=== PATIENT | female | born 1955 | race Caucasian/White ===

== ENCOUNTER → 2017-09-04 | Outpatient (CLI) | payer OTHER ==
[~2017-09-04] MED LIST: ACE3 PO; AMOX-559 PO; ASCO100T PO; AZIT-1 PO; CALC-852 PO; CEPH-13 PO; CHOL200074 PO; CHOL500050 PO; CIPR-326 PO; CYAN1000 IM; CYAN1TAB4 SL; DON PO; ENTLA PO; EST42T PV; ESTR10TA4 VG; ESTR1POW41 MC; ESTROVEN ENER PO; FEXO1TAB39 PO; FLUC150T40 PO; GUAI400T18 PO; HYDR-3166 PO; HYDR-3503 PO; HYDR2TAB74 PO; IBU800 PO; IBUP-2704 PO; LEV500 PO; LEVO-85 PO; LEVO50TA80 PO; LEVO750T44 PO; LEVO75TA68 PO; MAGN250T34 PO; METR-1 PO; MOMR; MOMR NS; MON10 PO; MONT10TA PO; MULT-1319 PO; MULT1000 PO; NAPR-1043 PO; NIAC500T85 PO; OMEG1CAP85 PO; PAN40 PO; PER PO; PHENA200 PO; POLY17PO25 PO; PRE10 PO; PRED20TA6 PO; SODI1PAC NS; SUDAFED PO; SUM25 PO; SUMA20SP8 NS; SUMA25TA27 PO; TRA50 PO; TRAZ-133 PO; TRAZ50TA34 PO
[2017-09-04 09:45] LABS: PLATELET COUNT, AUTOMATED 235 K/uL (150-450)
[2017-09-04 10:20] LABS: LDL CHOLESTEROL 128 mg/dl
== END ==
LOC: LAB 09:27
PROVIDERS: ATTEND Nurse Practitioner Family
DX: Z00.00 Encounter for general adult medical examination without abnormal findings (principal); E53.8 Deficiency of other specified B group vitamins; E03.9 Hypothyroidism, unspecified
CPT/HCPCS: 36415; 82040; 82247; 82310; 82374; 82435; 82465; 82565; 82947; 83718; 84075; 84132; 84155; 84295; 84443; 84450; 84460; 84478; 84520; 85025

== ENCOUNTER → 2017-11-14 | Outpatient (CLI) | payer OTHER ==
[~2017-11-14] MED LIST changes: +CHOL10005 PO; +DIPH-464 PO; +DOXY-179 PO; +FISH1CAP17 PO; +FLU150 PO; +SUMA50TA35 PO
--- NOTE | 2017-11-14 16:57 | RADIOLOGY IMAGING REPORT ---
FACILITY: [facility] PATIENT NAME: Rebecca Don : 1955 MR: [id number] V: [id number] EXAM DATE: ORDERING PHYSICIAN: VIDHYA KOCH TECHNOLOGIST: Location: [facility] Patient: Rebecca Don : 1955 Visit/Account:[id number] Date of Sevice: 11/14/2017 HIP RIGHT Indication: Hip pain. Comparison: None available Findings: There is no acute fracture or dislocation of the right hip. The pelvis is intact. Mild degenerative changes right hip joint noted characterized by slight remodeling of the femoral hea d IMPRESSION: 1. Mild degenerative changes, no acute abnormalities noted Report Dictated By: Roger Martinez at 11/14/2017 4:53 PM Report E-Signed By: Roger Martinez at 11/14/2017 4:54 PM WSN:[id number]
== END ==
LOC: RAD 15:43
PROVIDERS: ATTEND Nurse Practitioner Primary Care
DX: M16.11 Unilateral primary osteoarthritis, right hip (principal)

== ENCOUNTER 2017-12-06 11:56 | Emergency (ER) | payer OTHER ==
[~2017-12-06 11:56] MED LIST changes: +HYDR-4228 PO
--- NOTE | 2017-12-06 12:07 | ER Report ---
History and Physical Time Seen By MD: 12:07 Hx. of Stated Complaint: PT STATES HAS BEEN TX FOR A SINUS INFECTION FOR A FEW WEEKS. STILL DOESN'T FEEL GOOD, NOW HAVING EAR PAIN AND PRESSURE, WITH RINGING HPI/ROS CHIEF COMPLAINT: Sinus congestion, dizziness, headache HISTORY OF PRESENT ILLNESS: 62-year-old patient presents to emergency room with complaint of sinus congestion, dizziness, headache. Patient states that she has been feeling well for approximately one month. She states that she has seen her primary care provider, Demarco Min, who put her on antibiotics. She states that she did not improve and was seen again by Valarie Sharma. She states that she was prescribed antibiotics and steroids. She states that seemed to help with her hip pain but she has had persistent sinus congestion. She states that her was told her that she has also become forgetful. But he believed that she was just not listening to him because she didn't feel well. She states that she did go to [place] to visit her sister, she says she felt so bad out there that she just in the back home. She denies any confusion or getting lost in route. She states her sister also knows that she was more forgetful. She states that s he did return and spoke with Demarco Min who said that she felt like she was having some anxiety Prescribe some hydroxyzine. She states that did not seem to help. REVIEW OF SYSTEMS: Respiratory: No cough, no dyspnea. Cardiovascular: No chest pain, no palpitations. Gastrointestinal: No vomiting, no abdominal pain. Musculoskeletal: No back pain. Allergies: Coded Allergies: doxycycline (Verified Allergy, Intermediate, Swelling in eyes, 12/06/17) pecan nut (Unverified Allergy, Unknown, 12/06/17) Uncoded Allergies: HAYFEVER (Allergy, Intermediate, NASAL CONGESTION, 09/20/11) Home Meds Active Scripts Sumatriptan Succinate (SUMATRIPTAN SUCCINATE) 50 Mg Tablet, 1 TAB PO ONCE PRN for MIGRAINE, #30 TAB 1 Refill take one tab at onset of migraine and if not improved after 2 hours take second tab Prov:DEMARCO MIN APRN-[place]ana 09/16/17 Levothyroxine Sodium (SYNTHROID) 75 Mcg Tablet, 1 TAB PO QDAY, #90 TAB 3 Refills Prov:DEMARCO MIN APRN-C 12/02/16 Estradiol (VAGIFEM) 10 Mcg Tablet, 1 TAB VG twice per week, #24 TAB 3 Refills Prov:DEMARCO MIN APRNP-C 11/12/16 Reported Medications Cholecalciferol (Vitamin D3) (VITAMIN D3) 1,000 Unit Tablet, 1000 UNIT PO, TAB 09/16/17 Fish Oil/Vit E/Fat No.5/Hc137 (FLAX, FISH & BORAGE OIL SOFGEL) 1 Each Capsule, 1 EACH PO, CAPSULE 09/16/17 Diphenhydramine Hcl (DIPHENHYDRAMINE HCL) 25 Mg Capsule, 25 MG PO Q6-8H, CAPSULE 09/16/17 Magnesium Oxide (MAGNESIUM) 250 Mg Tablet, 1 TAB PO DAILY, TAB 11/20/15 Niacin (NIACIN) 500 Mg Tablet, 1 TAB PO QDAY, TAB 11/20/15 [place]-3S/Dha/Epa/Fish Oil (Fish Oil 1,200 mg Softgel) 720-1,200MG Capsule, 2400 MG PO DAILY 11/20/15 Sodium Chloride/Sodium Bicarb (SINUS RINSE REFILL PACKETS) 1 Each Packet, 1 EACH NS DAILY, PACKET 11/20/15 Polyethylene Glycol 3350 (MIRALAX) 17 Gm Powd.pack, 17 GM PO, PKT 11/20/15 Discontinued Reported Medications Guaifenesin (GUAIFENESIN) 400 Mg Tablet, 2 TAB PO DAILY, TAB 11/20/15 Discontinued Scripts Hydroxyzine Hcl (HYDROXYZINE HCL) 50 Mg Tablet, 1-2 TAB PO Q6H PRN for ANXIETY, #40 TAB 0 Refills Prov:DEMARCO MIN APRN-C 12/04/17 Trazodone Hcl (TRAZODONE HCL) 50 Mg Tablet, 1 TAB PO QHS, #90 TAB 3 Refills Prov:DEMARCO MIN APRN-C 11/12/17 Past Medical/Surgical History Patient has a past medical history of sinusitis, migraine secondary to sinusitis, hayfever, pneumonia, kidney stone, 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 Patient has surgical history of abdominal surgery, appendectomy, colonoscopy, hysterectomy, breast augmentation, breast biopsy. Reviewed Nurses Notes: Yes Hx Smoking: No Smoking Status: Never Smoker Hx Substance Use Disorder: No Constitutional Vital Sign - Last 24 Hours 12/06/17 12/06/17 12/06/17 12/06/17 11:56 12:00 12:01 12:26 Temp 98.1 Pulse 55 80 58 Resp 20 B/P (MAP) 151/90 (110) 151/90 Pulse Ox 99 98 O2 Delivery Room Air 12/06/17 12/06/17 12/06/17 12/06/17 12:30 12:56 13:00 13:26 Pulse 51 51 B/P (MAP) 124/77 (93) 126/81 (96) Pulse Ox 100 95 Physical Exam General Appearance: The patient is alert, has no immediate need for airway protection and no current signs of toxicity. ENT: Bilateral tympanic membranes are pearly-josue, the right mid membranes bulging, the left tympanic membrane is retracted, mucus mucous membranes are moist. Respiratory: Chest is non tender, lungs are clear to auscultation. Cardiac: regular rate and rhythm Gastrointestinal: Abdomen is soft and non tender, no masses, bowel sounds normal. Musculoskeletal: Neck: Neck is supple and non tender. Extremities have full range of motion and are non tender. Skin: No rashes or lesions. DIFFERENTIAL DIAGNOSIS: After history and physical exam differential diagnosis was considered for sinusitis, migraine, dehydration. Medical Decision Making Data Points Result Diagram: 12/06/17 1249 12/06/171248 Laboratory Hematology Test 12/06/17 12:49 Red Blood Count 4.76 M/uL (4.17-5.56) Mean Corpuscular Volume 92.2 fL (80.0-96.0) Mean Corpuscular Hemoglobin 31.0 pg (26.0-33.0) Mean Corpuscular Hemoglobin Concent 33.6 g/dL (32.0-36.0) Red Cell Distribution Width 13.2 % (11.5-14.5) Mean Platelet Volume 8.9 fL (7.2-11.1) Neutrophils (%) (Auto) 53.7 % (39.4-72.5) Lymphocytes (%) (Auto) 37.7 % (17.6-49.6) Monocytes (%) (Auto) 5.0 % (4.1-12.4) Eosinophils (%) (Auto) 2.1 % (0.4-6.7) Basophils (%) (Auto) 1.5 % (0.3-1.4) Nucleated RBC Relative Count (auto) 0.0 /100WBC Neutrophils # (Auto) 3.1 K/uL (2.0-7.4) Lymphocytes # (Auto) 2.2 K/uL (1.3-3.6) Monocytes # (Auto) 0.3 K/uL (0.3-1.0) Eosinophils # (Auto) 0.1 K/uL (0.0-0.5) Basophils # (Auto) 0.1 K/uL (0.0-0.1) Nucleated RBC Absolute Count (auto) 0.00 K/uL Sodium Level 141 mmol/L (137-145) Potassium Level 3.8 mmol/L (3.5-5.0) Chloride Level 102 mmol/L (98-107) Carbon Dioxide Level 31 mmol/L (22-31) Blood Urea Nitrogen 13 mg/dl (7-18) Creatinine 0.90 mg/dl (0.52-1.04) Glomerular Filtration Rate Calc > 60.0 Random Glucose 97 mg/dl (75-110) Calcium Level 9.7 mg/dl (8.4-10.2) Total Bilirubin 0.3 mg/dl (0.2-1.3) Aspartate Amino Transf (AST/SGOT) 32 U/L (0-35) Alanine Aminotransferase (ALT/SGPT) 30 U/L (0-56) Alkaline Phosphatase 80 U/L (0-126) C-Reactive Protein < 0.5 mg/dl (<1.0) Total Protein 7.4 g/dl (6.3-8.2) Albumin 4.1 g/dl (3.5-5.0) Monoscreen Negative (NEGATIVE) Chemistry Test 12/06/17 12:49 White Blood Count 5.7 k/uL (4.5-11.0) Red Blood Count 4.76 M/uL (4.17-5.56) Hemoglobin 14.8 g/dL (12.0-16.0) Hematocrit 43.9 % (34.0-47.0) Mean Corpuscular Volume 92.2 fL (80.0-96.0) Mean Corpuscular Hemoglobin 31.0 pg (26.0-33.0) Mean Corpuscular Hemoglobin Concent 33.6 g/dL (32.0-36.0) Red Cell Distribution Width 13.2 % (11.5-14.5) Platelet Count 238 K/uL (150-450) Mean Platelet Volume 8.9 fL (7.2-11.1) Neutrophils (%) (Auto) 53.7 % (39.4-72.5) Lymphocytes (%) (Auto) 37.7 % (17.6-49.6) Monocytes (%) (Auto) 5.0 % (4.1-12.4) Eosinophils (%) (Auto) 2.1 % (0.4-6.7) Basophils (%) (Auto) 1.5 % (0.3-1.4) Nucleated RBC Relative Count (auto) 0.0 /100WBC Neutrophils # (Auto) 3.1 K/uL (2.0-7.4) Lymphocytes # (Auto) 2.2 K/uL (1.3-3.6) Monocytes # (Auto) 0.3 K/uL (0.3-1.0) Eosinophils # (Auto) 0.1 K/uL (0.0-0.5) Basophils # (Auto) 0.1 K/uL (0.0-0.1) Nucleated RBC Absolute Count (auto) 0.00 K/uL Glomerular Filtration Rate Calc > 60.0 Calcium Level 9.7 mg/dl (8.4-10.2) Total Bilirubin 0.3 mg/dl (0.2-1.3) Aspartate Amino Transf (AST/SGOT) 32 U/L (0-35) Alanine Aminotransferase (ALT/SGPT) 30 U/L (0-56) Alkaline Phosphatase 80 U/L (0-126) C-Reactive Protein < 0.5 mg/dl (<1.0) Total Protein 7.4 g/dl (6.3-8.2) Albumin 4.1 g/dl (3.5-5.0) Monoscreen Negative (NEGATIVE) EKG/Imaging Imaging Head CT scan without contrast COMPARISONS: None ADDITIONAL PERTINENT HISTORY: Headache with dizziness TECHNIQUE: Multiple axial images were obtained from the skull base to the vertex without IV contrast. One of the following dose optimization techniques was utilized in the performance of this exam: Automated exposure control; adjustment of the mA and/or kV according to the patient's size; or use of an iterative reconstruction technique. Specific details can be referenced in the facility's radiology CT exam operational policy. FINDINGS: Midline shift: Negative Ventricles: Negative Brain parenchyma: Negative Extra-axial spaces: Negative Intracranial vasculature: Negative Osseous structures: Negative Paranasal sinuses and mastoid air cells: Negative Surrounding soft tissues and orbits: Negative IMPRESSION: Normal head CT scan without contrast. Report Dictated By: Gerhard Perez MD at 12/06/2017 1:22 PM Report E-Signed By: Gerhard Perez MD at 12/06/2017 1:25 PM ED Course/Re-evaluation ED Course Patient was admitted to exam room, history and physical were obtained. Differential diagnoses were considered. On examination lungs are clear, heart is regular. Patient does have tenderness to the maxillary and frontal sinuses. An IV was started, CBC, CMP, CRP were done. Labs were unremarkable. CT scan of the head was done. That was negative. I discussed the findings with patient and her . I believe that we are likely dealing with a viral illness patient has normal lab work and normal imaging. I discussed with patient and her . As I was talking with them I did think that perhaps we should check a mono test to make sure that is not a viral illness that she is dealing with. Patient agreed. That was negative. I discussed findings with patient. We'll go ahead and discharge home. I would like her to follow-up with Dr. Glass, ENT as an believe this is likely more of a upper respiratory type of issue. Patient and her verbalized understanding and agreement with plan. Decision to Disposition Date: Dec 06, 2017 Decision to Disposition Time: 13:41 Depart Departure Latest Vital Signs Vital Signs Date Time Temp Pulse Resp B/P (MAP) Pulse Ox O2 Delivery O2 Flow Rate FiO2 12/06/17 13:26 51 95 12/06/17 13:00 126/81 (96) 12/06/17 12:01 98.1 20 Room Air Impression: Primary Impression: Upper respiratory infection Condition: Improved Disposition: HOME OR SELF-CARE Referrals: DEMARCO MIN APRN CANOE INSPECTOR-C (PCP) Patient Instructions: Upper Respiratory Infection (ED) Additional Instructions: Increase fluid intake. Take the Sudafed twice a day. Follow up with Demarco in the next 1-2 weeks. Follow up with Dr. Glass in the next week. Continue with regular diet and exercise. Problem Qualifiers Primary Impression: Upper respiratory infection URI type: unspecified viral URI Qualified Codes: J06.9 - Acute upper respiratory infection, unspecified JOEY JARQUIN Dec 06, 2017 12:07
[2017-12-06] MEDS ORDERED: NS(*) 0.9% 500 ML BAG 500 ML IV ONE (12:35)
[2017-12-06 13:00] VITALS: BP 126/81
[2017-12-06 13:03] LABS: PLATELET COUNT, AUTOMATED 238 K/uL (150-450)
--- NOTE | 2017-12-06 13:29 | RADIOLOGY IMAGING REPORT ---
FACILITY: [facility] PATIENT NAME: Rebecca Don : 1955 MR: [id number] V: [id number] EXAM DATE: ORDERING PHYSICIAN: JOEY JARQUIN TECHNOLOGIST: Location: [facility] Patient: Rebecca Don : 1955 Visit/Account:[id number] Date of Sevice: 12/06/[address] scan without contrast COMPARISONS: None ADDITIONAL PERTINENT HISTORY: Headache with dizziness TECHNIQUE: Multiple axial images were obtained from the skull base to the vertex without IV contrast . One of the following dose optimization techniques was utilized in the performance of this exam: Aut omated exposure control; adjustment of the mA and/or kV according to the patient's size; or use of an iterative reconstruction technique. Specific details can be referenced in the facility's radiology CT exam operational policy. FINDINGS: Midline shift: Negative Ventricles: Negative Brain parenchyma: Negative Extra-axial spaces: Negative Intracranial vasculature: Negative Osseous structures: Negative Paranasal sinuses and mastoid air cells: Negative Surrounding soft tissues and orbits: Negative IMPRESSION: Normal head CT scan without contrast. Report Dictated By: Gerhard Perez MD at 12/06/2017 1:22 PM Report E-Signed By: Gerhard Perez MD at 12/06/2017 1:25 PM [id number]
== END 2017-12-06 14:23 | disposition home or self-care (01) ==
LOC: ER 12:26
DX: J06.9 Acute upper respiratory infection, unspecified (principal)
CPT/HCPCS: 70450; 85025; 86140; 86308; 96360; 99284; J7040; 82040; 82247; 82310; 82374; 82435; 82565; 82947; 84075; 84132; 84155; 84295; 84450; 84460; 84520

== ENCOUNTER 2018-07-19 08:31 | Emergency (ER) | payer OTHER ==
[2018-07-19] MEDS ORDERED: TRAZ50TA34 PO (08:42)
--- NOTE | 2018-07-19 09:10 | ER Report ---
History and Physical Time Seen By MD: 08:50 Hx. of Stated Complaint: cough/cold for 1 week. low grade fevers. coughing up yellow mucus HPI/ROS CHIEF COMPLAINT: cough, low grade fever HISTORY OF PRESENT ILLNESS: 63 f presents after 3 wks of congestion, now with thick sputum past 1 d, yellowish x 3 days, 1 wk coughing. low grade fever and pain, sensation of fullness left side of face. Pt takes flonase daily, has tried mucinex. States trish has worked in past for similar symptoms. Cp only when coughing and right lower lateral. No pain or pressure in between coughing or with exertion. No recent travel, LE edema, hx of VTE REVIEW OF SYSTEMS: Constitutional: above Eyes: no blurred vision ENT: No sore throat. Cardiovascular: No chest pain, no palpitations. Respiratory: above Gastrointestinal: no abd pain; vomited 1 yest; after eating tuna Genitourinary: no dysuria Musculoskeletal: No back pain. Skin: No rashes. Neurological: left side headache Remainder of the 14 system rev: Yes Allergies: Coded Allergies: doxycycline (Verified Allergy, Intermediate, Swelling in eyes, 07/19/18) pecan nut (Unverified Allergy, Unknown, 07/19/18) Uncoded Allergies: HAYFEVER (Allergy, Intermediate, NASAL CONGESTION, 09/20/11) Home Meds Active Scripts Fluconazole (DIFLUCAN) 150 Mg Tablet, 150 MG PO ONCE, #1 TAB Prov:TUAN KOO MD 07/19/18 Oxymetazoline Hcl (AFRIN) 15 Ml Mist, 2 SPRAYS MELECIO BID for 3 Days, #1 BOTTLE Prov:TUAN KOO MD 07/19/18 Benzonatate 100 Mg Cap (TESSALON PERLE 100 MG CAP) 100 Mg Capsule, 100 MG PO TID for cough, #20 CAP Prov:TUAN KOO MD 07/19/18 Levofloxacin 500 Mg Tab (LEVAQUIN 500 MG TAB) 500 Mg Tablet, 500 MG PO DAILY for 10 Days, #10 TAB Prov:TUAN KOO MD 07/19/18 Levothyroxine Sodium (SYNTHROID) 75 Mcg Tablet, 1 TAB PO QDAY, #90 TAB 1 Refill Prov:DEMARCO MIN APRN MICROBIOLOGICAL ANALYST-C 05/25/18 Montelukast Sodium (SINGULAIR) 10 Mg Tablet, 1 TAB PO QDAY, #90 TAB 3 Refills Prov:DEMARCO MIN APRN-[place] 05/21/18 Sumatriptan Succinate (SUMATRIPTAN SUCCINATE) 50 Mg Tablet, 1 TAB PO ONCE PRN for MIGRAINE, #30 TAB 1 Refill take one tab at onset of migraine and if not improved after 2 hours take second tab Prov:DEMARCO MIN APRN-[place] 05/21/18 Reported Medications Trazodone Hcl (TRAZODONE HCL) 50 Mg Tablet, 25 MG PO QHS 07/19/18 Cholecalciferol (Vitamin D3) (VITAMIN D3) 1,000 Unit Tablet, 1000 UNIT PO, TAB 09/16/17 Fish Oil/Vit E/Fat No.5/Hc137 (FLAX, FISH & BORAGE OIL SOFGEL) 1 Each Capsule, 1 EACH PO, CAPSULE 09/16/17 Diphenhydramine Hcl (DIPHENHYDRAMINE HCL) 25 Mg Capsule, 25 MG PO Q6-8H, CAPSULE 09/16/17 Magnesium Oxide (MAGNESIUM) 250 Mg Tablet, 1 TAB PO DAILY, TAB 11/20/15 Niacin (NIACIN) 500 Mg Tablet, 1 TAB PO QDAY, TAB 11/20/15 [place]-3S/Dha/Epa/Fish Oil (Fish Oil 1,200 mg Softgel) 720-1,200MG Capsule, 2400 MG PO DAILY 11/20/15 Sodium Chloride/Sodium Bicarb (SINUS RINSE REFILL PACKETS) 1 Each Packet, 1 EACH NS DAILY, PACKET 11/20/15 Polyethylene Glycol 3350 (MIRALAX) 17 Gm Powd.pack, 17 GM PO, PKT 11/20/15 Discontinued Scripts Estradiol (VAGIFEM) 10 Mcg Tablet, 1 TAB VG DAILY, #14 TAB 0 Refills Prov:DEMARCO MIN APRN-Rossana 04/27/18 Reviewed Nurses Notes: Yes Hx Smoking: No Smoking Status: Never Smoker Hx Substance Use Disorder: No Hx Alcohol Use: No Constitutional Vital Sign - Last 24 Hours 07/19/18 07/19/18 07/19/18 07/19/18 08:35 09:00 09:30 09:56 Temp 98.1 Pulse 59 59 52 Resp 18 B/P (MAP) 108/71 100/67 (78) 97/59 (72) 105/62 (76) Pulse Ox 95 90 94 O2 Delivery Room Air 07/19/18 07/19/18 10:00 10:30 Pulse 50 54 B/P (MAP) 99/61 (74) 94/63 (73) Pulse Ox 100 Physical Exam General Appearance: The patient is alert, has no immediate need for airway protection and no signs of toxicity. Eyes: Pupils equal and round no pallor or injection. ENT, Mouth: Mucous membranes are moist. No tenderness to percussion of dentition. Tenderness to palpation of left maxillary sinus. No other sinus tenderness. TM clear Respiratory: There are no retractions, lungs are clear to auscultation. Cardiovascular: Regular rate and rhythm. no m/r/g Neurological: alert, oriented, nad Skin: Warm and dry, no rashes. Musculoskeletal: Neck is supple non tender. No cervical lymphadenopathy Extremities are nontender, nonswollen and have full range of motion. DIFFERENTIAL DIAGNOSIS: After history and physical exam differential diagnosis was considered for complications of sinusitis including septic thrombosis, dental infection, cellulitis, abscess, pneumonia, or other emergent etiology. Medical Decision Making EKG/Imaging Imaging X-ray: chest was obtained. I viewed the images myself on the PACS system. My interpretation of the images is: nacpd. The radiologist interpretation was pending at time of this evaluation. ED Course/Re-evaluation ED Course 63 f presents with sgs/symptoms of left max sinusitis without complications. Given duration and findings, will initaite abx. I discussed r/b of levaquin; pt understands these risks yet states this is all that has worked for her in the past, so we will rx levaquin. Chest findings c/w bronchitis without e/o pna. Pt comfortable and hd stable on d/c and understands SRP's. Decision to Disposition Date: July 19, 2018 Decision to Disposition Time: 10:32 Depart Departure Latest Vital Signs Vital Signs Date Time Temp Pulse Resp B/P (MAP) Pulse Ox O2 Delivery O2 Flow Rate FiO2 07/19/18 10:30 54 94/63 (73) 07/19/18 10:00 100 07/19/18 08:35 98.1 18 Room Air Impression: Primary Impression: Sinusitis Additional Impression: Bronchitis Condition: Improved Disposition: HOME OR SELF-CARE Referrals: DEMARCO MIN APRN MICROBIOLOGICAL ANALYST-C (PCP) 5 Days New Scripts Fluconazole (DIFLUCAN) 150 Mg Tablet 150 MG PO ONCE, #1 TAB Prov: TUAN KOO MD 07/19/18 Oxymetazoline Hcl (AFRIN) 15 Ml Mist 2 SPRAYS MELECIO BID for 3 Days, #1 BOTTLE Prov: TUAN KOO MD 07/19/18 Benzonatate 100 Mg Cap (TESSALON PERLE 100 MG CAP) 100 Mg Capsule 100 MG PO TID for cough, #20 CAP Prov: TUAN KOO MD 07/19/18 Levofloxacin 500 Mg Tab (LEVAQUIN 500 MG TAB) 500 Mg Tablet 500 MG PO DAILY for 10 Days, #10 TAB Prov: TUAN OKO MD 07/19/18 Patient Instructions: Acute Bronchitis (ED), Sinusitis (ED) Additional Instructions: As we discussed, take levaquin for 10 days for your sinusitis; please stop medication immediately and seek evaluation for concerning diarrhea, muscle or joint pain, or any concerns. While a single dose of diflucan with levaquin is unlikely to cause significant side effects, there is a low potential for serious abnormal heart rhythm. Please return immediately if you have palpitations, chest pressure, difficulty breathing, feel weak, or any concerns. Problem Qualifiers Primary Impression: Sinusitis Sinusitis location: maxillary Chronicity: unspecified Qualified Codes: J32.0 - Chronic maxillary sinusitis TUAN KOO MD July 19, 2018 09:10
[2018-07-19] MEDS ORDERED: BENZ100C4 PO (09:51)
[2018-07-19] MEDS ORDERED: LEVO-85 PO (09:51)
[2018-07-19] MEDS ORDERED: OXYM15MI14 ENA (09:51)
[2018-07-19] MEDS ORDERED: FLUC150T40 PO (09:55)
[2018-07-19 10:30] VITALS: BP 94/63
--- NOTE | 2018-07-19 11:06 | RADIOLOGY IMAGING REPORT ---
FACILITY: [facility] PATIENT NAME: Rebecca Don : 1955 MR: [id number] V: [id number] EXAM DATE: ORDERING PHYSICIAN: TUAN KOO TECHNOLOGIST: Location: [facility] Patient: Rebecca Dno : 1955 Visit/Account:[id number] Date of Sevice: 07/19/2018 CHEST PA LAT COMPARISON: None. HISTORY: dyspnea, cough FINDINGS: CARDIAC/VASC: No cardiac silhouette abnormality or cardiomegaly. Unremarkable pulmonary vasculatu re. MEDIASTINUM: No visible mass or adenopathy. LUNGS/PLEURA: No pneumothorax. No significant pulmonary parenchymal abnormalities. No effusion or p leural thickening. BONES: No fracture or visible bony lesion. Moderate dextroscoliosis of the thoracic spine. Modera te facet joint hypertrophy in the visualized cervical spine. OTHER:Negative. IMPRESSION: No acute cardiopulmonary process. Report Dictated By: Mika Jackson at 07/19/2018 11:01 AM Report E-Signed By: Mika Jackson at 07/19/2018 11:01 AM WSN:[id number]
== END 2018-07-19 10:39 | disposition home or self-care (01) ==
LOC: ER 09:04
DX: J32.0 Chronic maxillary sinusitis (principal); J40 Bronchitis, not specified as acute or chronic
CPT/HCPCS: 71046; 99283

== ENCOUNTER → 2018-09-28 | Outpatient (CLI) | payer OTHER ==
[~2018-09-28] MED LIST changes: +BENZ100C4 PO; +OXYM15MI14 ENA; -TRAZ50TA34 PO; +TRAZ50TA52 PO
== END ==
LOC: LAB 16:06
PROVIDERS: ATTEND Nurse Practitioner Family
DX: L29.8 Other pruritus (principal)
CPT/HCPCS: 87210